=== PATIENT | female | born 1965 | race American Indian/Alaskan Native ===

== ENCOUNTER 2017-02-20 08:09 | Emergency (ER) | payer SELFPAY ==
[2017-02-20 08:20] VITALS: BP 159/90
[2017-02-20] MEDS ORDERED: DUONEB 0.5 MG-3 MG/3 ML SOLN IH ONE ×2 (08:32→08:38)
[2017-02-20 08:42] LABS: Basophils % (Auto) 0.6 % (0.0-1.8); Eosinophils % (Auto) 6.7 % (0.0-4.3); Hematocrit 43.9 % (30.3-42.9); Hemoglobin 14.2 gm/dl (10.1-14.3); Mean Corpuscular HGB Conc 32 % (30-34); Mean Corpuscular Hemoglobin 31 pg (28-32); Mean Corpuscular Volume 95 fl (79-97); Platelet Count 202 K/mm3 (140-440); Red Blood Count 4.62 M/mm3 (3.65-5.03); Red Cell Distribution Width 13.4 % (13.2-15.2); White Blood Count 7.8 K/mm3 (4.5-11.0)
[2017-02-20 09:00] LABS: Anion Gap 15 mmol/L; Blood Urea Nitrogen 14 mg/dL (7-17); Calcium 9.2 mg/dL (8.4-10.2); Carbon Dioxide 27 mmol/L (22-30); Chloride 104.8 mmol/L (98-107); Glucose 108 mg/dL (65-100); Potassium 4.2 mmol/L (3.6-5.0); Sodium 143 mmol/L (137-145)
--- NOTE | 2017-02-20 09:14 | XRay Report ---
CHEST 2 VIEWS INDICATION: Shortness of breath. Asthma. COMPARISON: 03/04/2016. FINDINGS: PA and lateral chest radiographs demonstrate normal cardiomediastinal silhouette. Clear lungs. Intact bones. CONCLUSION: No acute disease in the chest. Thank you for the opportunity to participate in this patient's care.
--- NOTE | 2017-02-24 01:12 | ED Elopement Review ---
ED Pt Elopement review - Results review Lab results: Laboratory Tests 02/20/17 02/20/17 08:28 08:28 WBC 7.8 RBC 4.62 Hgb 14.2 Hct 43.9 H MCV 95 MCH 31 MCHC 32 RDW 13.4 Plt Count 202 Lymph % (Auto) 32.4 [place] % (Auto) 7.3 Eos % (Auto) 6.7 H Baso % (Auto) 0.6 Lymph # 2.5 [place] # 0.6 Eos # 0.5 H Baso # 0.0 Seg Neutrophils % 53.0 Seg Neutrophils # 4.1 Sodium 143 Potassium 4.2 Chloride 104.8 Carbon Dioxide 27 Anion Gap 15 BUN 14 Creatinine 0.7 Estimated GFR > 60 BUN/Creatinine Ratio 20.00 Glucose 108 H Calcium 9.2 Troponin T < 0.010 - Call Back decision Pt Call Back Decision: Pt to F/U with PMD
== END 2017-02-20 16:03 | disposition left against medical advice (07) ==
LOC: ED 08:09
DX: R06.00 Dyspnea, unspecified (principal); R06.2 Wheezing; Z53.21 Procedure and treatment not carried out due to patient leaving prior to being seen by health care provider
CPT/HCPCS: 36415; 71020; 80048; 84484; 85025; 93005; 93010

== ENCOUNTER 2021-02-26 00:39 | Emergency (ER) | payer BC ==
[2021-02-26 00:48] VITALS: BP 161/97
[2021-02-26] MEDS ORDERED: ALBUTEROL 2.5 MG/3 ML NEBU IH ONE ×2 (00:54→01:58)
[2021-02-26] MEDS: IPRATROPIUM 0.02% NEBU 2.5 ML IH ONE (00:58)
[2021-02-26] MEDS ORDERED: dexAMETHasone 4 MG/ML VIAL IM ONE (01:58)
[2021-02-26] MEDS ORDERED: EPINEPHrine/PF 1 MG/1 ML INJ SUB-Q ONE (01:58)
--- NOTE | 2021-02-26 02:05 | Emergency Department Report ---
ED Asthma HPI - General Chief Complaint: Dyspnea/Respdistress Stated Complaint: ASTHMA/ARMOND Time Seen by Provider: 02/26/21 01:58 Source: patient Mode of arrival: Ambulatory Limitations: No Limitations - History of Present Illness Initial Comments: 55-year-old -[place] female presents emergency department complaining of having a asthma exacerbation which is likely secondary to a pressure tract infection as she has been experiencing. She reports no hemoptysis no hematemesis hematochezia but having wheezing that had did not respond to her bronchodilators at home MD Complaint: "asthma attack", wheezing -: Gradual Asthma History: history of frequent attac Severity: mild Context: recent URI Associated Symptoms: none Treatments Prior to Arrival: inhaled bronchodilator - Related Data Current Asthma Therapy: inhaled bronchodilator Previous Rx's Medication Instructions Recorded Last Taken Type ALBUTEROL NEB's [Proventil 0.083% 2.5 mg IH TID PRN #25 dose 02/01/15 Unknown Rx NEBS] Albuterol Sulfate [Albuterol 0.63% 0.63 mg IH TID PRN #1 box 05/10/15 Unknown Rx NEBS] Budesoni/Formoterol 80-4.5(Nf) 2 puff IH BID #1 inha 05/10/15 Unknown Rx [Symbicort 80-4.5 (Nf)] Montelukast [Singulair] 10 mg PO QPM #30 tablet 05/10/15 Unknown Rx Acetaminophen/Codeine [Tylenol 1 tab PO Q6H PRN #12 tab 03/12/16 Unknown Rx /Codeine # 3 tab] Albuterol Mdi (or & Nicu Only) 2 puff IH QID PRN #1 inh 03/12/16 Unknown Rx [ProAir HFA Inhaler] Fluticasone [Flonase] 1 spray NS QDAY #1 bottle 03/12/16 Unknown Rx Benzonatate [Tessalon Perles] 100 mg PO Q8HR #14 capsule 02/26/21 Unknown Rx Montelukast [Singulair] 10 mg PO QPM #14 tablet 02/26/21 Unknown Rx predniSONE [Deltasone] 20 mg PO QDAY #5 tab 02/26/21 Unknown Rx Allergies Allergy/AdvReac Type Severity Reaction Status Date / Time amoxicillin [Amoxicillin] Allergy Swelling Verified 07/30/13 20:13 Penicillins Allergy Swelling Verified 07/30/13 20:13 ED Review of Systems ROS: Stated complaint: ASTHMA/ARMOND Other details as noted in HPI Comment: All other systems reviewed and negative ED Past Medical Hx - Past Medical History Hx Hypertension: Yes Hx CVA: No Hx Heart Attack/AMI: No Hx Congestive Heart Failure: Yes Hx Diabetes: No Hx Deep Vein Thrombosis: No Hx Pulmonary Embolism: No Hx GERD: No Hx Liver Disease: No Hx Renal Disease: No Hx Sickle Cell Disease: No Hx Arthritis: No Hx Headaches / Migraines: No Hx Seizures: No Hx Kidney Stones: No Hx Psychiatric Treatment: No Hx Asthma: Yes Hx COPD: No Hx Tuberculosis: No Hx Dementia: No Hx HIV: No Additional medical history: intubated x2 - Surgical History Additional Surgical History: hysterectomy, 3 c-sections - Social History Smoking Status: Never Smoker - Medications Home Medications: Home Medications Medication Instructions Recorded Confirmed Last Taken Type ALBUTEROL NEB's [Proventil 0.083% 2.5 mg IH TID PRN #25 dose 02/01/15 03/12/16 Unknown Rx NEBS] Albuterol Sulfate [Albuterol 0.63% 0.63 mg IH TID PRN #1 box 05/10/15 03/12/16 Unknown Rx NEBS] Budesoni/Formoterol 80-4.5(Nf) 2 puff IH BID #1 inha 05/10/15 03/12/16 Unknown Rx [Symbicort 80-4.5 (Nf)] Montelukast [Singulair] 10 mg PO QPM #30 tablet 05/10/15 03/12/16 Unknown Rx Acetaminophen/Codeine [Tylenol 1 tab PO Q6H PRN #12 tab 03/12/16 Unknown Rx /Codeine # 3 tab] Albuterol Mdi (or & Nicu Only) 2 puff IH QID PRN #1 inh 03/12/16 Unknown Rx [ProAir HFA Inhaler] Fluticasone [Flonase] 1 spray NS QDAY #1 bottle 03/12/16 Unknown Rx Benzonatate [Tessalon Perles] 100 mg PO Q8HR #14 capsule 02/26/21 Unknown Rx Montelukast [Singulair] 10 mg PO QPM #14 tablet 02/26/21 Unknown Rx predniSONE [Deltasone] 20 mg PO QDAY #5 tab 02/26/21 Unknown Rx ED Physical Exam - General Limitations: No Limitations General appearance: alert, in no apparent distress - Head Head exam: Present: atraumatic, normocephalic - Eye Eye exam: Present: normal appearance, PERRL, EOMI Pupils: Present: normal accommodation - ENT ENT exam: Present: normal exam, mucous membranes moist - Neck Neck exam: Present: normal inspection - Respiratory Respiratory exam: Present: normal lung sounds bilaterally, wheezes. Absent: r espiratory distress, rhonchi, stridor, decreased breath sounds - Cardiovascular Cardiovascular Exam: Present: regular rate, normal rhythm. Absent: systolic murmur, diastolic murmur, rubs, gallop - GI/Abdominal GI/Abdominal exam: Present: soft, normal bowel sounds - Extremities Exam Extremities exam: Present: normal inspection - Back Exam Back exam: Present: normal inspection - Neurological Exam Neurological exam: Present: alert, oriented X3 - Psychiatric Psychiatric exam: Present: normal affect, normal mood - Skin Skin exam: Present: warm, dry, intact, normal color. Absent: rash ED Course Vital Signs 02/26/21 00:46 Temperature 97.7 F Pulse Rate 117 H Respiratory 24 Rate Blood Pressure 161/97 O2 Sat by Pulse 95 Oximetry ED Medical Decision Making - Radiology Data Radiology results: report reviewed [address] [place] [address] XRay Report Signed Patient: SOPHIE AYON MR#: [id number] : 1965 Acct:[id number] Age/Sex: 55 / F ADM Date: 02/26/21 Loc: ED Attending Dr: Ordering Physician: ALEX MCFADDEN MD Date of Service: 02/26/21 Procedure(s): XR chest 1V ap Accession Number(s): [id number] cc: ED MD BOGDAN Fluoro Time In Minutes: CHEST 1 VIEW, 02/26/2021 12:19 AM CLINICAL INFORMATION/INDICATION: Shortness of breath COMPARISON: Chest radiograph, 02/20/2017 FINDINGS: SUPPORT DEVICES: None. HEART: The cardiac silhouette is normal in size. LUNGS/PLEURA: The lungs are clear of focal airspace disease or significant pleural effusion ADDITIONAL FINDINGS: No additional acute findings. IMPRESSION: 1. No evidence of acute cardiopulmonary process. Signer Name: Hillary Dotson MD Signed: 02/26/2021 2:41 AM Workstation Name: [id number] Transcribed By: EB Dictated By: Hillary Dotson MD Electronically Authenticated By: Hillary Dotson MD Signed Date/Time: 02/26/21240 DD/ 9 TD/TT: Print Cancel - Medical Decision Making No altered mental status, saddle respirations, belly breathing or other signs of impending ventilatory failure. No intubations or recent admissions to the hospital for asthma. Unlikely pneumonia, CHF, COPD, GERD Workup Review include a chest x-ray which was normal she also received steroids and albuterol Therapies: Prednisone 50 mg PO. Albuterol nebulizer Reassessment: Patient improved with albuterol and ipratropium in less than 3 hours. Disposition: Discharge home with return precautions. Advised to follow up with primary care physician within next 24-48 hours. Aside from this acute exacerbation patient has been well controlled on baseline home regimen. Rx short steroid course, albuterol, Singulair, Flovent Critical care attestation.: If time is entered above; I have spent that time in minutes in the direct care of this critically ill patient, excluding procedure time. ED Disposition Clinical Impression: Asthma exacerbation, URI (upper respiratory infection) Disposition: - TO HOME OR SELFCARE Is pt being admited?: No Does the pt Need Aspirin: No Condition: Stable Instructions: Asthma, Adult, Cool Mist Vaporizer, Upper Respiratory Infection, Adult, How to Use a Dry Powder Inhaler, [id number], Cough, Adult Prescriptions: predniSONE [Deltasone] 20 mg PO QDAY #5 tab Montelukast [Singulair] 10 mg PO QPM #14 tablet Benzonatate [Tessalon Perles] 100 mg PO Q8HR #14 capsule Referrals: [facility] [Provider Group] - 3-5 Days Forms: Work/School Release Form(ED)
[2021-02-26] MEDS ORDERED: ACETAMINOPHEN 500 MG TAB PO ONE (02:21)
--- NOTE | 2021-02-26 02:45 | XRay Report ---
CHEST 1 VIEW, 02/26/2021 12:19 AM CLINICAL INFORMATION/INDICATION: Shortness of breath COMPARISON: Chest radiograph, 02/20/2017 FINDINGS: SUPPORT DEVICES: None. HEART: The cardiac silhouette is normal in size. LUNGS/PLEURA: The lungs are clear of focal airspace disease or significant pleural effusion ADDITIONAL FINDINGS: No additional acute findings. IMPRESSION: 1. No evidence of acute cardiopulmonary process. Signer Name: Hillary Dotson MD Signed: 02/26/2021 2:41 AM Workstation Name: [id number]
== END 2021-02-26 03:30 | disposition home or self-care (01) ==
LOC: ED 00:39
DX: J45.901 Unspecified asthma with (acute) exacerbation (principal); J06.9 Acute upper respiratory infection, unspecified; I10 Essential (primary) hypertension; Z90.710 Acquired absence of both cervix and uterus; Z98.890 Other specified postprocedural states; Z88.1 Allergy status to other antibiotic agents; Z88.0 Allergy status to penicillin; Z79.899 Other long term (current) drug therapy
CPT/HCPCS: 71045; 94640; 96372; 99283; J0171; J1100

== ENCOUNTER 2021-06-03 22:51 | Emergency (ER) | payer BC ==
[2021-06-04] VITALS: BP 171/91
--- NOTE | 2021-06-04 00:15 | Emergency Department Report ---
ED General Adult HPI - General Chief complaint: Adult Asthma Stated complaint: KNOT IN BACK ASTHMA SOB Time Seen by Provider: 06/04/21 00:00 Source: patient Mode of arrival: Ambulatory Limitations: No Limitations - History of Present Illness Initial comments: 55-year-old female with a past medical history of CHF, and asthma presents to the ER today with complaints of a knot to her left mid thoracic back area. Patient states that she had is "knot" for several years, but she states that in the past 2 weeks that she noticed that it is gotten bigger and more painful. She states that the knot hurts when she moves, when she walks, when she breathes and she states that she feels like it is flaring up her asthma. Patient states that she is not follow-up with her primary care doctor, she states "I do not like going to doctors like that". She denies any redness or apparent bruising to the area. She states that she has been wheezing, and she has had a mild intermittent cough and she has been using her albuterol inhaler as well as her nebulizer treatments every 6-8 hours without much relief. She reports no shortness of breath, fever, chills, or URI symptoms. MD Complaint: Knot in left back -: year(s) - Related Data Previous Rx's Medication Instructions Recorded Last Taken Type ALBUTEROL NEB's [Proventil 0.083% 2.5 mg IH TID PRN #25 dose 02/01/15 Unknown Rx NEBS] Albuterol Sulfate [Albuterol 0.63% 0.63 mg IH TID PRN #1 box 05/10/15 Unknown Rx NEBS] Budesoni/Formoterol 80-4.5(Nf) 2 puff IH BID #1 inha 05/10/15 Unknown Rx [Symbicort 80-4.5 (Nf)] Montelukast [Singulair] 10 mg PO QPM #30 tablet 05/10/15 Unknown Rx Acetaminophen/Codeine [Tylenol 1 tab PO Q6H PRN #12 tab 03/12/16 Unknown Rx /Codeine # 3 tab] Albuterol Mdi (or & Nicu Only) 2 puff IH QID PRN #1 inh 03/12/16 Unknown Rx [ProAir HFA Inhaler] Fluticasone [Flonase] 1 spray NS QDAY #1 bottle 03/12/16 Unknown Rx Benzonatate [Tessalon Perles] 100 mg PO Q8HR #14 capsule 02/26/21 Unknown Rx Montelukast [Singulair] 10 mg PO QPM #14 tablet 02/26/21 Unknown Rx predniSONE [Deltasone] 20 mg PO QDAY #5 tab 02/26/21 Unknown Rx Allergies Allergy/AdvReac Type Severity Reaction Status Date / Time amoxicillin [Amoxicillin] Allergy Swelling Verified 07/30/13 20:13 Penicillins Allergy Swelling Verified 07/30/13 20:13 ED Review of Systems ROS: Stated complaint: KNOT IN BACK ASTHMA SOB Other details as noted in HPI ED Past Medical Hx - Past Medical History Previous Medical History?: Yes Hx Hypertension: Yes Hx CVA: No Hx Heart Attack/AMI: No Hx Congestive Heart Failure: Yes Hx Diabetes: No Hx Deep Vein Thrombosis: No Hx Pulmonary Embolism: No Hx GERD: No Hx Liver Disease: No Hx Renal Disease: No Hx Sickle Cell Disease: No Hx Arthritis: No Hx Headaches / Migraines: No Hx Seizures: No Hx Kidney Stones: No Hx Psychiatric Treatment: No Hx Asthma: Yes Hx COPD: No Hx Tuberculosis: No Hx Dementia: No Hx HIV: No Additional medical history: intubated x2 - Surgical History Past Surgical History?: Yes Additional Surgical History: hysterectomy, 3 c-sections - Social History Smoking Status: Never Smoker - Medications Home Medications: Home Medications Medication Instructions Recorded Confirmed Last Taken Type ALBUTEROL NEB's [Proventil 0.083% 2.5 mg IH TID PRN #25 dose 02/01/15 03/12/16 Unknown Rx NEBS] Albuterol Sulfate [Albuterol 0.63% 0.63 mg IH TID PRN #1 box 05/10/15 03/12/16 Unknown Rx NEBS] Budesoni/Formoterol 80-4.5(Nf) 2 puff IH BID #1 inha 05/10/15 03/12/16 Unknown Rx [Symbicort 80-4.5 (Nf)] Montelukast [Singulair] 10 mg PO QPM #30 tablet 05/10/15 03/12/16 Unknown Rx Acetaminophen/Codeine [Tylenol 1 tab PO Q6H PRN #12 tab 03/12/16 Unknown Rx /Codeine # 3 tab] Albuterol Mdi (or & Nicu Only) 2 puff IH QID PRN #1 inh 03/12/16 Unknown Rx [ProAir HFA Inhaler] Fluticasone [Flonase] 1 spray NS QDAY #1 bottle 03/12/16 Unknown Rx Benzonatate [Tessalon Perles] 100 mg PO Q8HR #14 capsule 02/26/21 Unknown Rx Montelukast [Singulair] 10 mg PO QPM #14 tablet 02/26/21 Unknown Rx predniSONE [Deltasone] 20 mg PO QDAY #5 tab 02/26/21 Unknown Rx ED Physical Exam - General Limitations: No Limitations ED Course Vital Signs 06/03/21 23:56 Temperature 97.9 F Pulse Rate 67 Respiratory 18 Rate Blood Pressure 171/91 O2 Sat by Pulse 97 Oximetry ED Medical Decision Making - Medical Decision Making 55-year-old female with a past medical history of CHF, and asthma presents to the ER today with complaints of a knot to her left mid thoracic back area. Patient states that she had is "knot" for several years, but she states that in the past 2 weeks that she noticed that it is gotten bigger and more painful. She states that the knot hurts when she moves, when she walks, when she breathes and she states that she feels like it is flaring up her asthma. Patient states that she has not seen her doctor for this "Knot". She states "I do not like going to doctors like that". She denies any redness or apparent bruising to the area. She states that she has been wheezing, and she has had a mild intermittent cough and she has been using her albuterol inhaler as well as her nebulizer treatments every 6-8 hours without much relief. She reports no shortness of breath, fever, chills, or URI symptoms. 1209: Patient has an approximately 2 cm right 2 cm cystic/nodular area palpated just underneath the skin in the soft tissue of the left mid thoracic back area. It is tender to palpate but there is no overlying erythema or bruising. No fluctuance or induration. Informed patient that the best way to diagnose e xactly what this area is would be to follow-up with either her primary care doctor, or general surgeon to have an MRI and /or biopsy. Unfortunately an x- ray will not be able to see what the cystic/nodular area is and nor will a CT scan. Patient was not happy with that solution, she wanted something done about the cyst tonight. I did offer patient something for pain until she could follow-up with a doctor, and I also offered to treatment for asthma tonight her asthma but she refused, she states "I have a machine at home". Patient states that she is going to leave since we could not help her with her cyst. I did offer to write her discharge instructions with referral information and to give her something for pain but she again refused. patient walked out of the room without waiting to sign AMA/discharge instructions. At the time patient left she was not in any acute pain or respiratory distress. She is not toxic or ill- appearing. She was neurologically intact with a normal gait. Critical care attestation.: If time is entered above; I have spent that time in minutes in the direct care of this critically ill patient, excluding procedure time. ED Disposition Clinical Impression: Cyst, Asthma Disposition: LEFT AGAINST MEDICAL ADVICE Is pt being admited?: No Does the pt Need Aspirin: No Condition: Stable Instructions: Asthma (ED)
== END 2021-06-04 00:09 | disposition left against medical advice (07) ==
LOC: ED 22:51
DX: L72.9 Follicular cyst of the skin and subcutaneous tissue, unspecified (principal); J45.909 Unspecified asthma, uncomplicated; I11.0 Hypertensive heart disease with heart failure; Z88.0 Allergy status to penicillin
CPT/HCPCS: 99282